=== PATIENT | male | born 1990 | race Caucasian/White ===

== ENCOUNTER 2016-03-13 20:18 | Emergency (ER) | payer SELFPAY ==
[~2016-03-13] VITALS: Wt 95.3 kg
[~2016-03-13 20:18] MED LIST: ADVIL LIQUI-GE200 MG PO; AMOXICILLIN 50500 MG PO; ATARAX 10MG10 MG/TAB PO; ED ZOFRAN4 TAB/BOTT PO; ELIMITE60 GM TP; GOOD NEIGHBOR200 M1 PO; GUAIFEN/CODEIN120 ML PO; KETOROLAC TROME10 MG PO; NORCO 325 MG-51 TAB PO; OMEPRAZOLE D/R20 MG PO; PREDNISONE20 M1 PO; RITALIN PO; STROMECTOL3 MG PO; ULTRAM50 M1 PO; VIBRAMYCIN100 MG PO; ZITHROMAX 250M250 MG PO; [UNRECOGNIZED DRUG - OTHER] TP
[2016-03-13 22:35] VITALS: BP 137/89
== END 2016-03-13 22:35 | disposition home or self-care (01) ==
LOC: ED 20:18
DX: F41.0 Panic disorder [episodic paroxysmal anxiety] (principal); F41.8 Other specified anxiety disorders
CPT/HCPCS: J2060

== ENCOUNTER → 2016-03-16 | Outpatient (CLI) | payer SELFPAY | LOC: RAD 08:17 | DX: R10.11 Right upper quadrant pain (principal) ==

== ENCOUNTER 2017-03-22 08:27 | Emergency (ER) | payer SELFPAY ==
[~2017-03-22] VITALS: Ht 175.3 cm; Wt 72.7 kg
[2017-03-22 09:02] LABS: HEMOGLOBIN 15.7 g/dL (13.5-18.0); MEAN CELL VOLUME 81 fl (78-100); MEAN CORPUSCULAR HEMOGLOBIN 26 pg (27-31); MEAN CORPUSCULAR HGB CONC 32 g/dL (33-37); MEAN PLATELET VOLUME 9.7 fl (7.4-10.4); PLATELET COUNT 255 K/mm3 (130-400); RED BLOOD COUNT 6.03 M/mm3 (4.20-5.60); RED CELL DISTRIBUTION WIDTH 14.1 % (11.5-14.5); WHITE BLOOD COUNT 7.7 K/mm3 (4.8-10.8)
[2017-03-22 09:25] LABS: LYMPHOCYTE 19 % (20-51); MONOCYTE 11 % (3-10); NEUTROPHILS 68 % (42-75)
[2017-03-22 09:34] LABS: ALBUMIN 4.3 g/dL (3.5-5.0); BUN/CREATININE RATIO 15.8 (6.0-26.0); CALCIUM 8.7 mg/dL (8.4-10.2); POTASSIUM 4.3 mmol/L (3.6-5.0); TOTAL BILIRUBIN 0.6 mg/dL (0.2-1.3)
[2017-03-22 09:35] LABS: URINE APPEARANCE CLEAR; URINE BILIRUBIN NEGATIVE (NEGATIVE); URINE BLOOD NEGATIVE (NEGATIVE); URINE COLOR YELLOW; URINE GLUCOSE NEGATIVE (NEGATIVE); URINE KETONE NEGATIVE (NEGATIVE); URINE LEUKOCYTE ESTERASE NEGATIVE (NEGATIVE); URINE MUCUS PRESENT (NOT PRESENT); URINE NITRATE NEGATIVE (NEGATIVE); URINE PROTEIN(semi-quant) TRACE mg/dL (NEGATIVE); URINE UROBILINOGEN NORMAL (NORMAL); URINE WBC 0-1 /hpf (0-3)
[2017-03-22] MEDS ORDERED: ZOFRAN ODT8 M1 PO (10:26)
[2017-03-22 11:08] VITALS: BP 134/78
== END 2017-03-22 10:52 | disposition home or self-care (01) ==
LOC: ED 08:27
PROVIDERS: Physician Assistant
DX: F17.210 Nicotine dependence, cigarettes, uncomplicated (principal); K52.9 Noninfective gastroenteritis and colitis, unspecified; Z88.2 Allergy status to sulfonamides; Z91.048 Other nonmedicinal substance allergy status

== ENCOUNTER 2017-04-12 00:14 | Emergency (ER) | payer SELFPAY ==
[~2017-04-12] VITALS: Ht 177.8 cm; Wt 99.3 kg
[~2017-04-12 00:14] MED LIST changes: +ZOFRAN ODT8 M1 PO
[2017-04-12 00:51] LABS: EOS # 0.3 (0.04-0.40); EOS % 3.5 % (0.0-4.0); HEMATOCRIT 43.5 % (42.0-52.0); HEMOGLOBIN 14.2 g/dL (13.5-18.0); LYMPH# 3.7 (1.50-4.00); MEAN CELL VOLUME 80 fl (78-100); MEAN CORPUSCULAR HEMOGLOBIN 26 pg (27-31); MEAN CORPUSCULAR HGB CONC 33 g/dL (33-37); MEAN PLATELET VOLUME 10.2 fl (7.4-10.4); MONO # 0.8 (0.20-0.80); NEU # 2.4 (1.40-6.50); PLATELET COUNT 266 K/mm3 (130-400); RED BLOOD COUNT 5.41 M/mm3 (4.20-5.60); RED CELL DISTRIBUTION WIDTH 13.6 % (11.5-14.5); WHITE BLOOD COUNT 7.2 K/mm3 (4.8-10.8)
[2017-04-12 01:02] LABS: CALCIUM 9.3 mg/dL (8.4-10.2); POTASSIUM 3.9 mmol/L (3.6-5.0); TOTAL BILIRUBIN 0.1 mg/dL (0.2-1.3); TOTAL PROTEIN 7.2 g/dL (6.3-8.2)
[2017-04-12 01:43] VITALS: BP 148/90
== END 2017-04-12 01:43 | disposition home or self-care (01) ==
LOC: ED 00:14
PROVIDERS: Nurse Practitioner Primary Care
DX: R10.11 Right upper quadrant pain (principal); R10.31 Right lower quadrant pain; R61 Generalized hyperhidrosis; Z88.2 Allergy status to sulfonamides

== ENCOUNTER 2017-10-22 16:14 | Emergency (ER) | payer SELFPAY ==
[~2017-10-22] VITALS: Ht 167.6 cm; Wt 72.7 kg
[2017-10-22 17:03] LABS: EOS # 0.6 (0.04-0.40); HEMATOCRIT 43.6 % (42.0-52.0); HEMOGLOBIN 14.2 g/dL (13.5-18.0); LYMPH# 2.5 (1.50-4.00); MEAN CELL VOLUME 82 fl (78-100); MEAN CORPUSCULAR HEMOGLOBIN 27 pg (27-31); MEAN CORPUSCULAR HGB CONC 33 g/dL (33-37); MEAN PLATELET VOLUME 9.7 fl (7.4-10.4); MONO # 0.8 (0.20-0.80); NEU # 3.5 (1.40-6.50); PLATELET COUNT 292 K/mm3 (130-400); RED BLOOD COUNT 5.32 M/mm3 (4.20-5.60); RED CELL DISTRIBUTION WIDTH 14.1 % (11.5-14.5); WHITE BLOOD COUNT 7.4 K/mm3 (4.8-10.8)
[2017-10-22 17:09] LABS: EOS % 7.9 % (0.0-4.0)
[2017-10-22 18:05] VITALS: BP 134/84
== END 2017-10-22 18:03 | disposition home or self-care (01) ==
LOC: ED 16:14
PROVIDERS: Family Medicine
DX: R05 Cough (principal); D72.1 Eosinophilia; F17.210 Nicotine dependence, cigarettes, uncomplicated; J34.89 Other specified disorders of nose and nasal sinuses
CPT/HCPCS: J1040

== ENCOUNTER 2017-10-29 21:32 | Emergency (ER) | payer SELFPAY ==
[~2017-10-29] VITALS: Ht 177.8 cm; Wt 91.0 kg
[2017-10-29] MEDS ORDERED: KETOROLAC10 MG PO ×2 (22:56→22:59)
[2017-10-29 23:08] VITALS: BP 135/89
== END 2017-10-29 23:08 | disposition home or self-care (01) ==
LOC: ED 21:32
DX: S80.01XA Contusion of right knee, initial encounter (principal); S80.211A Abrasion, right knee, initial encounter; V17.0XXA Pedal cycle driver injured in collision with fixed or stationary object in nontraffic accident, initial encounter; Y92.414 Local residential or business street as the place of occurrence of the external cause
CPT/HCPCS: J1885

== ENCOUNTER 2018-10-22 17:54 | Emergency (ER) | payer SELFPAY ==
[~2018-10-22] VITALS: Ht 177.8 cm; Wt 94.0 kg
[~2018-10-22 17:54] MED LIST changes: +KETOROLAC10 MG PO
[2018-10-22 18:51] VITALS: BP 115/83
== END 2018-10-22 18:50 | disposition home or self-care (01) ==
LOC: ED 17:54
DX: S61.411A Laceration without foreign body of right hand, initial encounter (principal); F90.9 Attention-deficit hyperactivity disorder, unspecified type; F31.9 Bipolar disorder, unspecified; F43.10 Post-traumatic stress disorder, unspecified; F17.210 Nicotine dependence, cigarettes, uncomplicated; W29.3XXA Contact with powered garden and outdoor hand tools and machinery, initial encounter; Y92.009 Unspecified place in unspecified non-institutional (private) residence as the place of occurrence of the external cause

== ENCOUNTER 2018-10-29 15:06 | Emergency (ER) | payer SELFPAY ==
[2018-10-29 15:43] VITALS: BP 163/93
== END 2018-10-29 15:46 | disposition home or self-care (01) ==
LOC: ED 15:06
DX: Z48.02 Encounter for removal of sutures (principal)

== ENCOUNTER 2018-11-06 15:12 | Emergency (ER) | payer SELFPAY ==
[2018-11-06 15:25] VITALS: BP 135/87
== END 2018-11-06 15:25 | disposition home or self-care (01) ==
LOC: ED 15:12
DX: S61.210D Laceration without foreign body of right index finger without damage to nail, subsequent encounter (principal); S61.011D Laceration without foreign body of right thumb without damage to nail, subsequent encounter